=== PATIENT | female | born 1995 | race Caucasian/White ===

== ENCOUNTER 2017-05-20 05:52 | Day surgery (SDC) | payer BC, MEDICAID ==
--- NOTE | 2017-05-19 12:25 | PDHPUP ---
History & Physical Update H&P update statement: This history and physical update is based on an assessment of the patient which was completed after admission or registration (within 24 hours), but prior to the surgery/procedure.
[~2017-05-20 05:52] MED LIST: ceFAZolin 2 GM/DEXTROSE 100 ML IV ONE
[2017-05-20] MEDS ORDERED: LIDOCAINE 1% 2 ML INJ ONE (05:59)
[2017-05-20 06:26] VITALS: TEMP 97.9
[2017-05-20] MEDS ORDERED: LR 1,000 ML IV ONE (06:32)
[2017-05-20] MEDS ORDERED: LIDOCAINE 1% 2 ML INJ ID PRN (06:32)
[2017-05-20] MEDS ORDERED: BUPIVACAINE/EPI 0.5% 30 ML SDV ONE (06:45)
[2017-05-20] MEDS ORDERED: POLYMYXIN B SULFATE 500,000 UNIT/10 ML SYR IRR ONE (06:46)
[2017-05-20] MEDS ORDERED: BACITRACIN 50,000 UNITS/10 ML SYR IRR ONE (06:46)
[2017-05-20 07:06] LABS: % IMMATURE GRANULYOCYTES 0.5 % (0.0-1.1); ABSOLUTE IMMATURE GRANULOCYTES 0.04 10^3/uL (0.00-0.10); ADD DIFF? NO; ADD MORPH? NO; ADD SCAN? NO; ATYPICAL LYMPHOCYTE FLAG 20 (0-99); FRAGMENT RBC FLAG 0 (0-99); HEMATOCRIT 38.4 % (38.0-47.0); LEFT SHIFT FLG 0 (0-99); LIPEMIA HEMOLYSIS FLAG 90 (0-99); MEAN CELL HEMOGLOBIN 32.8 pg (27.9-34.1); MEAN CELL HEMOGLOBIN CONCENTR. 33.9 g/dL (32.4-36.7); MEAN PLATELET VOLUME 9.1 fL (8.7-11.7); PLATELET CLUMPS FLAG 0 (0-99); PLATELET COUNT 243 10^3/uL (150-400); RED BLOOD CELL COUNT 3.96 10^6/uL (4.18-5.33); RED CELL DISTRIBUTION WIDTH 12.1 % (11.5-15.2)
[2017-05-20] MEDS ORDERED: MIDAZOLAM 2 MG/2 ML VIAL IVP ONE (07:08)
--- NOTE | 2017-05-20 07:10 | PDANEPAE ---
ANE History of Present Illness r shoulder dislocation ANE Past Medical History - Cardiovascular History Hx Hypertension: No Hx Arrhythmias: No Hx Chest Pain: No Hx Coronary Artery / Peripheral Vascular Disease: No Hx CHF / Valvular Disease: No Hx Palpitations: No - Pulmonary History Hx COPD: No Hx Asthma/Reactive Airway Disease: No Hx Recent Upper Respiratory Infection: No Hx Oxygen in Use at Home: No Hx Sleep Apnea: No Sleep Apnea Screening Result - Last Documented: Negative - Neurologic History Hx Cerebrovascular Accident: No Hx Seizures: Yes Hx Dementia: No Neurologic History Comment: SEIZURES TYPICALLY HAPPEN 1-2 YEARS APART - 07/2016 D/T FORGETTING MEDICINE ; 01/2017 "IT WAS VERY SHORT, I WAS DEHYDRATED, MY SODIUM WAS LOW SO IT TRIGGERED IT." - Endocrine History Hx Diabetes: No - Renal History Hx Renal Disorders: No - Liver History Hx Hepatic Disorders: No - Neurological & Psychiatric Hx Hx Neurological and Psychiatric Disorders: Yes Neurological / Psychiatric History Comment: SEIZURES - Cancer History Hx Cancer: No - Congenital Disorder History Hx Congenital Disorders: No - GI History Hx Gastrointestinal Disorders: No - Other Health History Other Health History: N/A - Chronic Pain History Chronic Pain: No - Surgical History Prior Surgeries: LABIRAL TISSUE REPAIR 09/2016. WISDOM TEETH 2014 ANE Review of Systems - Exercise capacity METS (RN): 5 METS ANE Patient History - Allergies Allergies/Adverse Reactions: No Known Allergies Allergy (Verified 10/02/16 12:31) - Home Medications Home Medications: Bcp 08/10/16 [Last Taken 10/04/16 22:30] Lamictal 08/10/16 [Last Taken 05/19/17 21:00] Doxycycline Calcium 10/02/16 [Last Taken 10/04/16 22:30] BIOTIN 05/14/17 [Last Taken 05/19/17 21:00] Keppra 1000 mg 05/14/17 [Last Taken 05/20/17 05:30] Sprintec 28 Day Tablet 05/14/17 [Last Taken 05/19/17 21:00] - NPO status NPO Since - Liquids (Date): 05/19/17 NPO Since - Liquids (Time): 23:00 NPO Since - Solids (Date): 05/19/17 NPO Since - Solids (Time): 17:00 - Smoking Hx Smoking Status: Never smoked - Family Anes Hx Family Hx Anesthesia Complications: NONE ANE Labs/Vital Signs - Labs Result Diagrams: 05/20/17 06:50 - Vital Signs Blood Pressure: 97/63 Heart Rate: 60 Respiratory Rate: 18 O2 Sat (%): 98 Height: 157.48 cm Weight: 53.524 kg ANE Physical Exam - Airway Mallampati Score: Class 1 Mouth exam: normal dental/mouth exam - Pulmonary Pulmonary: no respiratory distress - Cardiovascular Cardiovascular: regular rate and rhythym - ASA Status ASA Status: I ANE Anesthesia Plan Anesthesia Plan: general endotracheal anesthesia Regional Anesthesia: interscalene BP NB
[2017-05-20] MEDS ORDERED: PROPOFOL 200 MG/20 ML VIAL ONE (07:15)
[2017-05-20] MEDS ORDERED: fentaNYL 100 MCG/2 ML INJ ONE ×2 (07:15)
[2017-05-20] MEDS ORDERED: ROCURONIUM 50 MG/5 ML VIAL ONE (07:15)
[2017-05-20] MEDS ORDERED: LIDOCAINE 2% 100 MG/5 ML SYR ONE (07:15)
[2017-05-20] MEDS ORDERED: DEXAMETHASONE 4 MG/ML VIAL ONE (07:15)
[2017-05-20] MEDS ORDERED: ROPIVACAINE HCL 150 MG/30 ML INJ ONE (07:15)
[2017-05-20] MEDS ORDERED: ceFAZolin 2 GM/DEXTROSE 100 ML IV ONE (07:30)
[2017-05-20] MEDS ORDERED: PROMETHAZINE HCL 25 MG/ML INJ IVP PRN (10:00)
[2017-05-20] MEDS ORDERED: OXYCODONE/APAP 5/325 TAB PO PRN (10:00)
[2017-05-20] MEDS ORDERED: fentaNYL 100 MCG/2 ML INJ IVP PRN (10:00)
[2017-05-20] MEDS ORDERED: HYDROmorphONE/DILAUDID 1 MG/ML SYR IVP PRN (10:00)
[2017-05-20] MEDS ORDERED: NALOXONE HCL 0.4 MG/ML INJ IVP PRN (10:00)
--- NOTE | 2017-05-20 10:58 | POSTANESTH ---
Post Anesthetic Evaluation Cardiovascular Status: Normal, Stable Respiratory Status: Normal, Stable Level of Consciousness/Mental Status: Can Participate in Eval Pain Control: Adequate, Prn Tx Ordered Nausea/Vomiting Control: Adequate, Prn Tx Ordered Complications Possibly Related to Anesthesia: None Noted
[2017-05-20 11:12] VITALS: BP 101/65; PULSE 81; RESP 13; O2SAT 93
--- NOTE | 2017-05-20 20:47 | GOP ---
[f rep st] OPERATIVE REPORT DATE OF OPERATION: 05/20/2017 SURGEON: Neisha Burton MD FRONT END SOFTWARE ENGINEER: Oleg Busby [employer] SUPER[employer], [facility] ANESTHESIA: General with interscalene block. PREOPERATIVE DIAGNOSIS: Recurrent dislocations, right shoulder. POSTOPERATIVE DIAGNOSIS: Recurrent dislocations, right shoulder. PROCEDURE PERFORMED: Latarjet reconstruction with coracoid transfer, right shoulder. ESTIMATED BLOOD LOSS: Less than 100 cc. FINDINGS: Preoperative exam and MRI of the patient's right shoulder demonstrated findings consistent with recurrent dislocations. The patient had marked instability of the shoulder with multiple dislocations. The patient also has a seizure disorder and most of the dislocations occurred associated with the patient's seizures. All of the dislocations were anterior. She has had a previous arthroscopic Bankart repair, which failed early in the postoperative course due to a recurrent seizure. At the time of surgery, the coracoid process was exposed through a deltopectoral incision. The soft tissues along the medial and lateral aspect of the coracoid were released and then a coracoid osteotomy was performed. The coracoid was then prepared for transfer to the anterior glenoid. The medial side of the coracoid was cut with a saw to create a bed of bleeding bone. Two drill holes were then placed in the piece of coracoid, which measured approximately 2 cm in length. The drill was used to drill 2 holes in the piece of coracoid from the lateral to the medial side. The coracoid was then placed inferiorly in the wound and protected during the remainder of the exposure. The subscapularis was then incised and the patient had a very deficient anterior capsule due to her multiple dislocations. The capsule and subscap tendon were released as a single layer. This exposed the shoulder joint itself. The large Bankart lesion along the anterior aspect of the glenoid was located. The bur was used to create a bed of bleeding bone from the 3 o'clock to the 6 o'clock position. Once the bony surfaces had been prepared, the coracoid fragment was brought over and held in place while 2 pins were passed through the coracoid fragment and through the glenoid. The glenoid was then drilled and the screws were inserted and excellent bony fixation was achieved. The bone was placed approximately 1-2 mm inside the very edge of the bony glenoid. Excellent compression was achieved between the coracoid fragment and the bony surface of the glenoid. The upper half of the subscap, which had been previously incised, was then repaired back into anatomic position. Excellent stability of the shoulder was noted following the procedure. DESCRIPTION OF PROCEDURE: The patient was taken to the operating room, placed in supine position on the operating table. Following induction of adequate interscalene anesthesia and general anesthesia, the patient was placed in a modified beach chair position on a regular OR table. She was moved to the right side of the table and a towel roll was placed under the right scapula. The right shoulder and arm were then prepped and draped in the usual sterile manner. The patient received 2 g of IV Ancef. A deltopectoral incision was made centered over the coracoid process. It was extended down through the subcutaneous tissue to the deltoid. The deltopectoral groove was located and the deltoid was retracted laterally, the pectoralis medially. The cephalic vein was taken laterally with the deltoid. This provided excellent exposure of the coracoid process. The patient's shoulder was extremely unstable, so it was difficult to keep it reduced during the coracoid osteotomy. The pectoralis minor was released from the medial aspect of the coracoid and the coracoacromial ligament was released from the lateral side of the coracoid. The base of the coracoid was located and a Hohmann retractor was used superiorly to retract the soft tissues. A saw was then used to osteotomize the coracoid process. It was removed right at the base. Subperiosteal dissection was performed along the inner side of the coracoid, removing the remaining soft tissue attachments. The coracoid was then held while the bony surface of the medial coracoid was exposed. A saw was used to take a thin wafer of bone to expose the cancellous bone underlying the cortex. The [employer] Latarjet instrumentation was used throughout the procedure. The clamp for the coracoid was used and then the 2 drill holes were placed in the coracoid fragment. Next, the fragment was placed in the inferior aspect of the wound and our attention was turned back to the anterior aspect of the shoulder joint. The upper rolled border of the subscapularis was located and then a Irene elevator was used and passed under the subscap to try and separate it from the underlying capsular layer. Due to the multiple dislocations, the patient's capsule was quite deficient. The upper half of the subscap was taken down approximately a centimeter and a half from its lateral attachments. The upper edge of the subscap was tagged. The capsule was deficient and hence could not be from the subscapularis. The glenohumeral joint was then opened. The Fukuda retractor was inserted to retract the humeral head. The anterior aspect of the glenoid was well exposed. Baby Hohmann retractor was used along the medial aspect of the glenoid to retract the soft tissues. The surface of the glenoid extending from 3 o'clock to 6 o'clock was debrided with a bur. The soft tissues had been stripped away with multiple previous dislocations. Once a bed of bleeding bone was created along the anterior aspect of the glenoid, the coracoid fragment was brought up to this location and held in appropriate position along the edge of the glenoid, and then 2 K-wires were passed through the coracoid fragment and into the glenoid. The glenoid was drilled and then a 32 mm screw was placed in the inferior hole of the coracoid fragment and a 36 mm screw was placed in the superior hole of the coracoid. Good compression was achieved at the bony interface. The screw heads were recessed into the bone fragment. The wound was thoroughly irrigated out and the position of the coracoid was checked. It was aligned in a satisfactory fashion, just approximately a millimeter from the glenoid surface. The capsule could not be closed due to the deficiency of capsule. The subscapularis was then reattached in anatomic position using a #2 FiberWire. Three #2 FiberWires were placed in a figure-of- eight fashion. Excellent repair of the subscap was achieved. The wound was again irrigated out and the subcutaneous tissues were closed using 2-0 Vicryl followed by 4-0 Vicryl in the skin. Steri-Strips and sterile dressings were applied. The patient was placed in a sling postoperatively. She tolerated the procedure well. There were no complications. Estimated blood loss less than 100 cc. Final sponge and needle counts were correct. The patient was transported to the recovery room in good condition. /[id number]/MODL MTDD
== END 2017-05-20 11:48 | disposition home or self-care (01) ==
LOC: FSGY 05:52
PROVIDERS: ATTEND Orthopaedic Surgery
PROC: 0RU Upper Joints, Supplement (ICD-10-PCS; principal; 2017-05-20 07:15)
DX: M24.411 Recurrent dislocation, right shoulder (principal); G40.909 Epilepsy, unspecified, not intractable, without status epilepticus; M25.311 Other instability, right shoulder
CPT/HCPCS: 84481-90; C1713; J0690; J1100; J2001; J2250; J2704; J2795; J3010

== ENCOUNTER 2018-06-12 10:08 | Emergency (ER) | payer BC, MEDICAID ==
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
[2018-06-12] MEDS ORDERED: levETIRAcetam 500MG/NACL 100 ML IV ONE (10:50)
[2018-06-12] MEDS ORDERED: NS 1,000 ML IV ONE (10:50)
[2018-06-12] MEDS ORDERED: ONDANSETRON 4 MG/2 ML VIAL IVP ONE (10:50)
[2018-06-12 10:59] LABS: PLATELET COUNT 299 10^3/uL (150-400)
[2018-06-12 12:14] VITALS: BP 118/85
== END 2018-06-12 12:14 | disposition home or self-care (01) ==
LOC: EDUNIT#
DX: G40.909 Epilepsy, unspecified, not intractable, without status epilepticus (principal); E86.9 Volume depletion, unspecified
CPT/HCPCS: 80175-90; 80177-90; 96365; J1953

== ENCOUNTER 2018-07-30 01:29 | Emergency (ER) | payer BC, MEDICAID ==
[2018-07-30] MEDS ORDERED: NS 1,000 ML IV ONE (01:35)
[2018-07-30] MEDS ORDERED: ONDANSETRON 4 MG/2 ML VIAL IVP ONE (01:35)
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
[2018-07-30 01:52] LABS: PLATELET COUNT 363 10^3/uL (150-400)
[2018-07-30 04:30] VITALS: BP 98/53
== END 2018-07-30 05:41 | disposition home or self-care (01) ==
LOC: MERGE 01:29 → EDBD 01:29
DX: F10.920 Alcohol use, unspecified with intoxication, uncomplicated (principal); Y90.7 Blood alcohol level of 200-239 mg/100 ml
CPT/HCPCS: 96374; G0480; J2405